=== PATIENT | male | born 1940 | race Caucasian/White ===

== ENCOUNTER 2018-04-02 23:02 | Emergency (ER) | payer OTHER ==
[2018-04-02 23:48] LABS: ADD MAN DIFF? NO
[2018-04-02 23:50] LABS: ABNORMAL IP MESSAGE 1; BASOPHILS % 0.2 % (0.0-2.0); EOSINOPHILS # 0.1 10^3/ul (0.0-0.5); EOSINOPHILS % 0.6 % (0.0-7.0); HEMATOCRIT 33.3 % (42.0-52.0); HEMOGLOBIN 11.1 g/dl (14.0-18.0); LYMPHOCYTES # 0.5 10^3/ul (0.8-2.9); MEAN CORPUSCULAR HEMOGLOBIN 34.8 pg (29.0-33.0); MEAN CORPUSCULAR HGB CONC 33.3 g/dl (32.0-37.0); MEAN CORPUSCULAR VOLUME 104.4 fl (82.0-101.0); MEAN PLATELET VOLUME 10.4 fl (7.4-10.4); MONOCYTE # 0.9 10^3/ul (0.3-0.9); MONOCYTES % 10.1 % (0.0-11.0); NEUTROPHIL # 7.5 10^3/ul (1.6-7.5); NEUTROPHILS % 82.3 % (39.0-77.0); PLATELET COUNT 196 10^3/UL (140-415); POSITIVE DIFF @See below; RED BLOOD COUNT 3.19 10^6/ul (4.70-6.10); RED CELL DISTRIBUTION WIDTH 12.6 % (11.5-14.5)
[2018-04-02 23:50] LABS: WHITE BLOOD COUNT 9.1 10^3/ul (4.8-10.8)
[2018-04-03] MEDS: ONDANSETRON 4 MG INJ IV (00:05)
[2018-04-03] MEDS: morphine 4 MG/ML VIAL IV (00:05)
[2018-04-03] MEDS: SOD CHLORIDE 0.9% 1,000 ML IV (00:05)
[2018-04-03 00:08] LABS: ALANINE AMINOTRANSFERASE 36 IU/L (13-69); ALBUMIN 4.5 g/dl (3.3-4.9); ALBUMIN/GLOBULIN RATIO 1.21; ALKALINE PHOSPHATASE 194 IU/L (42-121); ANION GAP 27 (8-16); ASPARTATE AMINO TRANSFERASE 108 IU/L (15-46); BILIRUBIN,INDIRECT 0.3 mg/dl (0-1.1); BILIRUBIN,TOTAL 0.3 mg/dl (0.2-1.3); BLOOD UREA NITROGEN 25 mg/dl (7-20); CARBON DIOXIDE 29 mmol/L (21-31); CHLORIDE 95 mmol/L (97-110); CREATININE 3.44 mg/dl (0.61-1.24); GLUCOSE 189 mg/dl (70-220); LIPASE 223 U/L (23-300); POTASSIUM 4.7 mmol/L (3.5-5.1); SODIUM 146 mmol/L (135-144); TOTAL PROTEIN 8.2 g/dl (6.1-8.1)
== END 2018-04-03 07:12 | disposition home or self-care (01) ==
LOC: E/R 23:02
DX: R10.9 Unspecified abdominal pain (principal); E11.22 Type 2 diabetes mellitus with diabetic chronic kidney disease; N18.9 Chronic kidney disease, unspecified; Z99.2 Dependence on renal dialysis; Z79.84 Long term (current) use of oral hypoglycemic drugs; Z87.891 Personal history of nicotine dependence
CPT/HCPCS: 36415; 76775; 80053; 83690; 85025; 96374; 96375; 99285-25